=== PATIENT | female | born 1930 | race Caucasian/White ===

== ENCOUNTER → 2020-01-30 20:23 | Outpatient (CLI) | payer SELFPAY ==
[2020-01-30 22:06] LABS: INR 3.56 (0.85-1.17); PROTIME 34.9 SECONDS (11.6-15.0)
== END | disposition home or self-care (01) ==
LOC: D.LABREF 20:23
PROVIDERS: ATTEND Family Medicine
DX: Z79.01 Long term (current) use of anticoagulants (principal)

== ENCOUNTER → 2020-02-06 15:32 | Outpatient (CLI) | payer MEDICARE, OTHER ==
[2020-02-06 16:50] LABS: INR 4.01 (0.85-1.17); PROTIME 38.3 SECONDS (11.6-15.0)
== END | disposition home or self-care (01) ==
LOC: D.LABREF 15:32
PROVIDERS: ATTEND Family Medicine
DX: Z79.01 Long term (current) use of anticoagulants (principal)

== ENCOUNTER → 2020-02-15 19:41 | Outpatient (CLI) | payer MEDICARE, OTHER ==
[2020-02-15 21:02] LABS: INR 3.3 (0.85-1.17)
== END | disposition home or self-care (01) ==
LOC: D.LABREF 19:41
PROVIDERS: ATTEND Family Medicine
DX: Z79.01 Long term (current) use of anticoagulants (principal)

== ENCOUNTER → 2020-02-27 21:15 | Outpatient (CLI) | payer MEDICARE, OTHER ==
[2020-02-27 22:02] LABS: INR 2.07 (0.85-1.17)
== END | disposition home or self-care (01) ==
LOC: D.LABREF 21:15
PROVIDERS: ATTEND Family Medicine
DX: Z79.01 Long term (current) use of anticoagulants (principal)

== ENCOUNTER → 2020-03-20 18:13 | Outpatient (CLI) | payer MEDICARE, OTHER ==
[2020-03-20 18:32] LABS: INR 2.01 (0.85-1.17); PROTIME 22.5 SECONDS (11.6-15.0)
== END | disposition home or self-care (01) ==
LOC: D.LABREF 18:13
PROVIDERS: ATTEND Family Medicine
DX: Z79.01 Long term (current) use of anticoagulants (principal)